=== PATIENT | male | born 1970 | race Caucasian/White ===

== ENCOUNTER 2017-11-18 18:51 | Emergency (ER) | payer OTHER ==
[2017-11-18 19:10] VITALS: BP 156/86; PULSE 63; TEMP 98.1; BMI 34.9
--- NOTE | 2017-11-18 19:12 | PDOC ---
Rapid Medical Evaluation Time Seen by Provider: 11/18/17 19:05 Medical Evaluation: Allergies Allergy/AdvReac Type Severity Reaction Status Date / Time Shellfish Allergy Intermediate pruritis Verified 12/08/14 19:57 11/18/17 19:06 I have performed a brief-in person evaluation of this patient. The patient presents with a chief complaint of: Right mid back pain x1 week with epigastric pain x3d. Cough without fever x 10d ago. Denies sour taste in mouth or acid burning to chest Pertinent physical exam findings: B/P in triage: 156/86 L/S CTAB, RRR s1,s2 Abd: neg pain on palpation I have ordered the following:cxr The patient will proceed to the ED for a further evaluation.
--- NOTE | 2017-11-18 19:22 | PDOC ---
History of Present Illness - General Chief Complaint: Nausea/Vomiting Stated Complaint: PAIN Time Seen by Provider: 11/18/17 19:05 History Source: Patient - History of Present Illness Timing/Duration: other Severity: moderate Associated Symptoms: denies: cough, fever/chills, nausea/vomiting, shortness of breath Past History - Past Medical History Allergies/Adverse Reactions: Allergies Allergy/AdvReac Type Severity Reaction Status Date / Time Shellfish Allergy Intermediate pruritis Verified 11/18/17 19:10 Home Medications: Ambulatory Orders Atenolol [Tenormin -] 50 mg PO HS 01/06/13 Levothyroxine [Synthroid -] 200 mcg PO DAILY 01/06/13 Lisinopril [Prinivil -] 30 mg PO HS 01/06/13 Anemia: No Asthma: No Cancer: No Cardiac Disorders: No CVA: No COPD: No CHF: No Dementia: No Diabetes: No GI Disorders: Yes (H PYLORI) Disorders: No HTN: Yes Hypercholesterolemia: No Liver Disease: No Seizures: No Thyroid Disease: Yes (HYPOTHYROIDISM) - Surgical History Abdominal Surgery: No Appendectomy: No Cardiac Surgery: No Cholecystectomy: No Lung Surgery: No Neurologic Surgery: No Orthopedic Surgery: No - Suicide/Smoking/Psychosocial Hx Smoking Status: No Smoking History: Never smoked Have you smoked in the past 12 months: No Number of Cigarettes Smoked Daily: 0 Information on smoking cessation initiated: No Hx Alcohol Use: No Drug/Substance Use Hx: No Substance Use Type: None Hx Substance Use Treatment: No Review of Systems - Review of Systems Constitutional: No: Chills, Fever Respiratory: No: Cough, Shortness of Breath Cardiac (ROS): No: Chest Pain, Lightheadedness, Palpitations, Syncope Musculoskeletal: Yes: Back Pain *Physical Exam - Vital Signs Last Vital Signs Temp Pulse Resp BP Pulse Ox 98.1 F 63 18 156/86 100 11/18/17 19:07 11/18/17 19:07 11/18/17 19:07 11/18/17 19:07 11/18/17 19:07 - Physical Exam General Appearance: Yes: Appropriately Dressed. No: Apparent Distress HEENT: positive: Normal Voice Neck: positive: Supple Respiratory/Chest: positive: Lungs Clear, Normal Breath Sounds. negative: Respiratory Distress Cardiovascular: positive: Regular Rate, S1, S2 Gastrointestinal/Abdominal: positive: Soft. negative: Tender Musculoskeletal: negative: CVA Tenderness Extremity: positive: Normal Inspection Integumentary: positive: Dry, Warm Neurologic: positive: Fully Oriented, Alert, Normal Mood/Affect Medical Decision Making - Medical Decision Making 11/18/17 19:21 47 yo Male, h/o anxiety, HTN, hyperthyroid, here w/ pain to right lower back 1 week. Unable to describe pain, but states it is intermittent and worse with certain movements. No associated w/ food. Not taking anything for pain for unclear reasons. Denies any trauma but states he does heavy lifting at work and also works out with weights. No cough, chest pain, shortness of breath, palpitations, nausea, vomiting, change in bowel movements, dysuria, fever or chills. Patient well-appearing and stable with unremarkable exam. Suspect muscular etiology at this time. Pt states he's concerned about gallstones, but has no abdominal pain, nausea, vomiting or other signs or symptoms consistent with biliary sorce and no known h/o GS. Chest x-ray ordered from triage and negative. Discharged with pain control and have patient follow up with PMD as needed *DC/Admit/Observation/Transfer Diagnosis at time of Disposition: Back pain Qualifiers: Back pain location: low back pain Chronicity: acute Back pain laterality: right Sciatica presence: without sciatica Qualified Code(s): M54.5 - Low back pain - Discharge Dispostion Disposition: HOME Condition at time of disposition: Good - Referrals - Patient Instructions Printed Discharge Instructions: Low Back Pain Additional Instructions: Take tylenol as needed for pain and follow-up with your doctor - Post Discharge Activity
[2017-11-18] MEDS ORDERED: IBUPROFEN 400 MG TABLET (FP) PO ONE (19:48)
== END 2017-11-18 19:58 | disposition home or self-care (01) ==
LOC: JERFT 18:51
DX: M54.5 Low back pain (principal); R10.13 Epigastric pain; I10 Essential (primary) hypertension; E03.9 Hypothyroidism, unspecified
CPT/HCPCS: 71046-TC-FY; 99281-25

== ENCOUNTER 2018-09-15 19:53 | Emergency (ER) | payer OTHER ==
--- NOTE | 2018-09-15 19:57 | PDOC ---
Rapid Medical Evaluation Time Seen by Provider: 09/15/18 19:55 Medical Evaluation: Allergies Allergy/AdvReac Type Severity Reaction Status Date / Time Shellfish Allergy Intermediate pruritis Verified 11/18/17 19:10 09/15/18 19:55 I have performed a brief in-person evaluation of this patient. The patient presents with a chief complaint of: CP w/ sob while driving several minutes ago, since resolved. H/o hypothyroid, HTN, neg stress test ~5 years ago . No obvious RF for DVT/PE Pertinent physical exam findings:stable and in NAD w/ clear chest/lungs I have ordered the following:ekg/cxr/labs The patient will proceed to the ED for further evaluation. Discharge Disposition - Diagnosis Chest pain Qualifiers: Chest pain type: unspecified Qualified Code(s): R07.9 - Chest pain, unspecified - Referrals Referrals: Rambo Mcdermott [Primary Care Provider] - - Patient Instructions - Post Discharge Activity
[2018-09-15 20:01] VITALS: TEMP 98.4; BMI 34.9
--- NOTE | 2018-09-15 20:31 | PDOC ---
History of Present Illness - General Chief Complaint: Chest Pain Stated Complaint: CHEST PAIN Time Seen by Provider: 09/15/18 19:55 - History of Present Illness Initial Comments: The patient is a 48M w/ a history of HTN, hypothyroidism, and anxiety who presents for evaluation for chest pain associated w/ shortness of breath and BLE weakness. He states that the pain started suddenly while driving, described as non-radiating, L chest pressure that resolved spontaneously after 10min. He took a Priyank at that time. He denies symptoms currently. He denies fever/chills, JOEL, vision changes, current chest pain/SOB/weakness, abdominal pain, N/V/C/D. Denies hx of HI or stroke 09/15/18 20:42 Past History - Past Medical History Allergies/Adverse Reactions: Allergies Allergy/AdvReac Type Severity Reaction Status Date / Time Shellfish Allergy Intermediate pruritis Verified 09/15/18 22:58 Home Medications: Ambulatory Orders Atenolol [Tenormin -] 50 mg PO HS 01/06/13 Levothyroxine [Synthroid -] 200 mcg PO DAILY 01/06/13 Lisinopril [Prinivil -] 30 mg PO HS 01/06/13 Anemia: No Asthma: No Cancer: No Cardiac Disorders: No CVA: No COPD: No CHF: No Dementia: No Diabetes: No GI Disorders: Yes (H PYLORI) Disorders: No HTN: Yes Hypercholesterolemia: No Liver Disease: No Seizures: No Thyroid Disease: Yes (HYPOTHYROIDISM) - Surgical History Abdominal Surgery: No Appendectomy: No Cardiac Surgery: No Cholecystectomy: No Lung Surgery: No Neurologic Surgery: No Orthopedic Surgery: No - Suicide/Smoking/Psychosocial Hx Smoking Status: No Smoking History: Never smoked Have you smoked in the past 12 months: No Number of Cigarettes Smoked Daily: 0 Hx Alcohol Use: No Drug/Substance Use Hx: No Substance Use Type: None Hx Substance Use Treatment: No Review of Systems - Review of Systems Able to Perform ROS?: Yes Comments:: GENERAL/CONSTITUTIONAL: No fever or chills. No weakness HEAD, EYES, EARS, NOSE AND THROAT: No change in vision. No ear pain or discharge. No sore throat CARDIOVASCULAR: No current chest pain or shortness of breath GASTROINTESTINAL: No nausea, vomiting, diarrhea or constipation GENITOURINARY: No dysuria, frequency, or change in urination MUSCULOSKELETAL: No joint or muscle swelling or pain. No neck or back pain SKIN: No rash NEUROLOGIC: No headache, vertigo, loss of consciousness, or change in strength/ sensation ENDOCRINE: No increased thirst. No abnormal weight change HEMATOLOGIC/LYMPHATIC: No anemia, easy bleeding, or history of blood clots ALLERGIC/IMMUNOLOGIC: No hives or skin allergy 09/15/18 20:45 Is the patient limited Vietnamese proficient: No *Physical Exam - Vital Signs Last Vital Signs Temp Pulse Resp BP Pulse Ox 98.4 F 87 18 175/97 H 98 09/15/18 19:56 09/15/18 19:56 09/15/18 19:56 09/15/18 19:56 09/15/18 19:56 - Physical Exam Comments: GENERAL: Awake, alert, and fully oriented, in no acute distress HEAD: No signs of trauma, normocephalic, atraumatic EYES: PERRLA, EOMI, sclera anicteric, conjunctiva clear ENT: Hearing grossly normal, nares patent, oropharynx clear without exudates. Moist mucosa LUNGS: No distress, speaks full sentences, clear to auscultation bilaterally HEART: Regular rate and rhythm, normal S1 and S2, no murmurs appreciated, peripheral pulses normal and equal bilaterally ABDOMEN: Soft, nontender, normoactive bowel sounds. No guarding, no rebound. No masses EXTREMITIES : Normal inspection, Normal range of motion, no edema. No clubbing or cyanosis NEUROLOGICAL: Cranial nerves II through XII grossly intact. Normal speech, normal gait, no focal sensorimotor deficits SKIN: Warm, Dry, normal turgor, no rashes or lesions noted 09/15/18 20:46 Moderate Sedation - Procedure Monitoring Vital Signs: Procedure Monitoring Vital Signs Temperature 98.4 F 09/15/18 19:56 Pulse Rate 87 09/15/18 19:56 Respiratory Rate 18 09/15/18 19:56 Blood Pressure 175/97 H 09/15/18 19:56 O2 Sat by Pulse Oximetry (%) 98 09/15/18 19:56 ED Treatment Course - LABORATORY CBC & Chemistry Diagram: 09/15/18 21:00 09/15/18 21:00 Medical Decision Making - Medical Decision Making The pt is a 48M who presents for evaluation of sudden onset L chest pressure w/ SOB and BLE weakness that spontaneously resolved after 10min Ddx: ACS, PE, PNX, PNA ED Course CMP, CBC, cardiac enzymes, coags ECG CXR ASA 325mg 09/15/18 20:47 CXR w/o evidence of PNA, PNX, or widened mediastinum 09/15/18 20:50 No leukocytosis No anemia 09/15/18 21:23 Plan for two Trop I, if neg, will plan for D/C w/ outpatient Cardiology f/u 09/15/18 21:30 D-dimer neg Initial Trop I neg Lytes wnl No ALEISHA 09/15/18 21:53 . Vital Signs Temp Pulse Resp BP Pulse Ox 98.4 F 69 18 141/90 99 09/15/18 19:56 09/16/18 00:41 09/16/18 00:41 09/16/18 00:41 09/16/18 00:41 Repeat Trop I neg Plan for D/C w/ PCP and Cardiology f/u Discharge instructions and return precautions given Plan discussed w/ patient who is in agreement and verbalized understanding Dispo: home 09/16/18 00:49 *DC/Admit/Observation/Transfer Diagnosis at time of Disposition: Chest pain Qualifiers: Chest pain type: unspecified Qualified Code(s): R07.9 - Chest pain, unspecified - Discharge Dispostion Disposition: HOME Condition at time of disposition: Stable Decision to Admit order: No - Referrals Referrals: Rambo Mcdermott [Primary Care Provider] - Manfred Funez MD [Staff Physician] - [facility] [Provider Group] - Patient Instructions Printed Discharge Instructions: DI for Chest Pain Additional Instructions: You were seen in the Emergency Department today for evaluation of chest pain. Please review the handout provided at discharge. Continue to take your medications as prescribed. Follow up with your primary care provider and Cardiology referral. Return to the Emergency Department if you develop fevers/chills, chest pain, shortness of breath, nausea/vomiting, or any new/concerning symptoms - Post Discharge Activity Forms/Work/School Notes: Back to Work
[2018-09-15] MEDS ORDERED: ASPIRIN 325 MG TABLET PO ONE (20:47)
--- NOTE | 2018-09-15 20:55 | PDOC ---
Attending Attestation - HPI HPI: 09/15/18 22:05 The patient is a 48 year old male with a significant PMH of hypertension, hypothyroidism, and H.Pylori who presents to the emergency department with left sided chest pain since earlier today. The patient reports some associated shortness of breath with his chest pain. He denies any radiation. The patient also reports some bilateral leg pain also . he denies any other symptoms or complaints. The patient denies any fever, chills, nausea, vomiting, diarrhea, constipation or urinary symptoms. He denies any headache or dizziness. - Physicial Exam PE: 09/15/18 22:05 GENERAL: Awake, alert, and fully oriented, in no acute distress HEAD: No signs of trauma EYES: PERRLA, EOMI, sclera anicteric, conjunctiva clear ENT: Auricles normal inspection, hearing grossly normal, nares patent, oropharynx clear without exudates. Moist mucosa NECK: Normal ROM, supple, no lymphadenopathy, JVD, or masses LUNGS: Breath sounds equal, clear to auscultation bilaterally. No wheezes, and no crackles HEART: Regular rate and rhythm, normal S1 and S2, no murmurs, rubs or gallops ABDOMEN: Soft, nontender, normoactive bowel sounds. No guarding, no rebound. No masses EXTREMITIES: Normal range of motion, no edema. No clubbing or cyanosis. No cords, erythema, or tenderness NEUROLOGICAL: Cranial nerves II through XII grossly intact. Normal speech, normal gait SKIN: Warm, Dry, normal turgor, no rashes or lesions noted. Documentation prepared by Amanda Pinedo, acting as medical territory manager for Nichol Wood MD. <Amanda Pinedo - Last Filed: 09/15/18 22:05> - Resident Resident Name: Vishal Eastman - ED Attending Attestation I have performed the following: I have examined & evaluated the patient, The case was reviewed & discussed with the resident, I agree w/resident's findings & plan, Exceptions are as noted - Medical Decision Making 09/15/18 20:55 I, Dr. Nichol Wood, DO, attest that this document has been prepared under my direction and personally reviewed by me in its entirety. I further attest, that it accurately reflects all work, treatment, procedures and medical decision -making performed by me. 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 -will send labs, ekg, cxr 09/16/18 00:39 trop x 2 are negative cxr clear pt feeling better stable for d/c to home <Nichol Wood - Last Filed: 09/16/18 00:39> Heart Score/ECG Review - History History: Moderately suspicious - Electrocardiogram EKG: Normal - Age Age: 45-65 - Risk Factors Risk Factors Heart Score: Yes Hx Hypertension Based on the list above the patient has:: 1-2 risk factors - Troponin Troponin: </= normal limit - Score Heart Score - Total: 3 - ECG Intrepretation Comment:: 09/15/18 21:16 sinus at 82, nl axis, nl interval, no acute st/t wave findings, lvh, t wave inversions III which are nonspecific <Nichol Wood - Last Filed: 09/16/18 00:39>
[2018-09-15 21:10] LABS: BASO % 0.2 % (0-2.0); EOS % 5.6 % (0-4.5); HEMATOCRIT 40.5 % (35.4-49); HEMOGLOBIN 14.2 GM/dL (11.7-16.9); LYMPH % 31.4 % (8-40); MCH 29.9 pg (25.7-33.7); MCHC 35.1 g/dl (32.0-35.9); MEAN CELL VOLUME 85.3 fl (80-96); MEAN PLT VOLUME 8.1 fl (7.5-11.1); MONO % 7.5 % (3.8-10.2); NEUT % 55.3 % (42.8-82.8); PLATELET COUNT 180 K/MM3 (134-434); RBC 4.75 M/mm3 (4.00-5.60); RDW 13.3 % (11.9-15.9); WHITE BLOOD COUNT 4.9 K/mm3 (4.0-10.0)
[2018-09-15] MEDS ORDERED: ASPIRIN 81 MG CHEWABLE TABLETS ONE (21:26)
[2018-09-15 21:53] LABS: ALBUMIN 3.8 g/dl (3.4-5.0); ALK PHOS 68 U/L (45-117); ANION GAP 8 MMOL/L (8-16); BILIRUBIN,TOTAL 0.3 mg/dL (0.2-1); BLOOD UREA NITROGEN 18 mg/dL (7-18); CALCIUM 8.4 mg/dL (8.5-10.1); CHLORIDE 103 mmol/L (98-107); CO2 29 mmol/L (21-32); CREATININE 1.1 mg/dL (0.55-1.3); GLUCOSE,RANDOM 162 mg/dL (74-106); POTASSIUM 3.5 mmol/L (3.5-5.1); SGOT/AST 34 U/L (15-37); SGPT/ALT 50 U/L (13-61); SODIUM 140 mmol/L (136-145); TOT PROT 7.2 g/dl (6.4-8.2)
[2018-09-16] MEDS ORDERED: ACETAMINOPHEN 325 MG TABLET (FP) ONE (00:12)
[2018-09-16 00:42] VITALS: BP 141/90; PULSE 69
--- NOTE | 2018-09-16 17:15 | EKG ---
Test Reason : Blood Pressure : / mmHG Vent. Rate : 082 BPM Atrial Rate : 082 BPM P-R Int : 166 ms QRS Dur : 104 ms QT Int : 368 ms P-R-T Axes : 053 021 012 degrees QTc Int : 429 ms NORMAL SINUS RHYTHM NORMAL ECG WHEN COMPARED WITH ECG OF 08-DEC-2014 20:37, NO SIGNIFICANT CHANGE WAS FOUND Confirmed by MD YARELY, ED ([id number]) on 09/16/2018 5:15:04 PM Referred By: Confirmed By:ED PRITCHETT MD
== END 2018-09-16 01:00 | disposition home or self-care (01) ==
LOC: JER 19:53
DX: R07.9 Chest pain, unspecified (principal); I10 Essential (primary) hypertension; E03.9 Hypothyroidism, unspecified; Z86.19 Personal history of other infectious and parasitic diseases
CPT/HCPCS: 36415; 71045-TC-FY; 80053; 82550; 82553; 84484; 85025; 85379; 93005; 93010; 99283-25

== ENCOUNTER 2019-01-06 02:20 | Emergency (ER) | payer OTHER ==
[2019-01-06 03:16] VITALS: BP 142/98; PULSE 104; TEMP 98.3; BMI 31.7
[2019-01-06] MEDS ORDERED: MAG HYDROX/AL HYDROX/SIMETH 30 ML UNIT-DOSE CUP PO ONE (03:32)
[2019-01-06] MEDS ORDERED: MAG HYDROX/AL HYDROX/SIMETH 30 ML UNIT-DOSE CUP ONE (03:36)
--- NOTE | 2019-01-06 04:55 | PDOC ---
Attending Attestation - Resident Resident Name: Vishal Eastman - HPI HPI: 01/06/19 04:54 Pt was seen by resident but left prior to my evaluation. I did NOT examine or evaluate patient prior to his leaving the department. - Physicial Exam PE: 01/06/19 04:54 n/a - Medical Decision Making 01/06/19 04:54 Left before medical evaluation
--- NOTE | 2019-01-06 04:59 | PDOC ---
History of Present Illness - General Chief Complaint: Shortness of Breath Stated Complaint: SOB Time Seen by Provider: 01/06/19 03:48 - History of Present Illness Initial Comments: The pt is a 48M w/ history of HTN, anxiety, and H. pylori who presents for evaluation of 3 hours of burning epigastric pain that radiated into his chest which has since resolved. Pt reports pain feels similar to that of his previous reflux symptoms. Reports eating chips and having an EtOH beverage before bed ( 2200). In the ED, the pt reports being asymptomatic but wanted to be evaluation because he was concerned about his symptoms. The pt denies any exacerbating or alleviating symptoms. Denies fevers/chills, JOEL, vision changes, dizziness/lightheadedness, abdominal pain, N/V/C/D, dysuria, hematuria, or changes in sensation 01/06/19 04:54 Past History - Past Medical History Allergies/Adverse Reactions: Allergies Allergy/AdvReac Type Severity Reaction Status Date / Time Shellfish Allergy Intermediate pruritis Verified 01/06/19 03:15 Home Medications: Ambulatory Orders Atenolol [Tenormin -] 50 mg PO HS 01/06/13 Levothyroxine [Synthroid -] 200 mcg PO DAILY 01/06/13 Lisinopril [Prinivil -] 30 mg PO HS 01/06/13 Anemia: No Asthma: No Cancer: No Cardiac Disorders: No CVA: No COPD: No CHF: No Dementia: No Diabetes: No GI Disorders: Yes (H PYLORI) Disorders: No HTN: Yes Hypercholesterolemia: No Liver Disease: No Seizures: No Thyroid Disease: Yes (HYPOTHYROIDISM) - Surgical History Abdominal Surgery: No Appendectomy: No Cardiac Surgery: No Cholecystectomy: No Lung Surgery: No Neurologic Surgery: No Orthopedic Surgery: No - Immunization History Immunization Up to Date: Yes - Suicide/Smoking/Psychosocial Hx Smoking Status: No Smoking History: Never smoked Have you smoked in the past 12 months: No Number of Cigarettes Smoked Daily: 0 Information on smoking cessation initiated: No Hx Alcohol Use: No Drug/Substance Use Hx: No Substance Use Type: None Hx Substance Use Treatment: No Review of Systems - Review of Systems Able to Perform ROS?: Yes Comments:: GENERAL/CONSTITUTIONAL: No fever or chills. No weakness HEAD, EYES, EARS, NOSE AND THROAT: No change in vision. No ear pain or discharge. No sore throat CARDIOVASCULAR: No shortness of breath RESPIRATORY: Denies cough, hemoptysis GASTROINTESTINAL: No nausea, vomiting, diarrhea or constipation GENITOURINARY: No dysuria, frequency, or change in urination MUSCULOSKELETAL: No joint or muscle swelling or pain. No neck or back pain SKIN: No rash NEUROLOGIC: No headache, vertigo, loss of consciousness, or change in strength/ sensation HEMATOLOGIC/LYMPHATIC: No anemia, easy bleeding, or history of blood clots 01/06/19 04:59 Is the patient limited Hong Konger proficient: No *Physical Exam - Vital Signs Last Vital Signs Temp Pulse Resp BP Pulse Ox 98.3 F 104 H 20 142/98 98 01/06/19 03:15 01/06/19 03:15 01/06/19 03:15 01/06/19 03:15 01/06/19 03:15 - Physical Exam Comments: GENERAL: Awake, alert, and oriented to person/place/time, in no acute distress HEAD: No signs of trauma, normocephalic, atraumatic EYES: PERRLA, EOMI, sclera anicteric, conjunctiva clear ENT: Hearing grossly normal, nares patent, oropharynx clear without exudates. Moist mucosa LUNGS: No distress, speaks full sentences, clear to auscultation bilaterally HEART: Regular rate and rhythm, normal S1 and S2, no murmurs appreciated, peripheral pulses normal and equal bilaterally ABDOMEN: Soft, nontender, normoactive bowel sounds. No guarding, no rebound EXTREMITIES: Normal inspection, Normal range of motion, no edema. No clubbing or cyanosis NEUROLOGICAL: Cranial nerves II through XII grossly intact. Normal speech, no focal sensorimotor deficits SKIN: Warm, Dry 01/06/19 05:00 Moderate Sedation - Procedure Monitoring Vital Signs: Procedure Monitoring Vital Signs Temperature 98.3 F 01/06/19 03:15 Pulse Rate 104 H 01/06/19 03:15 Respiratory Rate 20 01/06/19 03:15 Blood Pressure 142/98 01/06/19 03:15 O2 Sat by Pulse Oximetry (%) 98 01/06/19 03:15 ED Treatment Course - Medications Given in the ED: ED Medications Discontinued Medications Generic Name Dose Route Start Last Admin Trade Name Freq PRN Reason Stop Dose Admin Al Hydroxide/Mg Hydroxide 30 ml 01/06/19 03:32 01/06/19 03:38 Mylanta Oral Suspension - PO 01/06/19 03:33 30 ml ONCE ONE Administration Medical Decision Making - Medical Decision Making Pt is a 48M w/ a history of HTN, anxiety, and H. pylori presents for evaluation of several hours of epigastric burning pain likely 2/2 reflux Maalox for symptomatic relief Pt eloped before Attending evaluation or further workup could be completed No IV in place 01/06/19 05:01 *DC/Admit/Observation/Transfer Diagnosis at time of Disposition: Epigastric abdominal pain - Discharge Dispostion Disposition: ELOPED Condition at time of disposition: Stable Decision to Admit order: No - Referrals Referrals: Hallie Whitley MD [Primary Care Provider] - - Patient Instructions - Post Discharge Activity
== END 2019-01-06 04:54 | disposition left against medical advice (07) ==
LOC: JER 02:20
DX: R10.13 Epigastric pain (principal); I10 Essential (primary) hypertension; E03.9 Hypothyroidism, unspecified; R07.9 Chest pain, unspecified; Z87.19 Personal history of other diseases of the digestive system
CPT/HCPCS: 99281-25

== ENCOUNTER 2019-02-14 20:15 | Emergency (ER) | payer OTHER ==
[2019-02-14 20:21] VITALS: BP 138/88; PULSE 93; TEMP 101; BMI 34.9
[2019-02-14] MEDS ORDERED: ACETAMINOPHEN 500 MG TABLET (FP) PO ONE (20:54)
[2019-02-14] MEDS ORDERED: ACETAMINOPHEN 500 MG TABLET (FP) ONE (21:01)
--- NOTE | 2019-02-14 21:03 | PDOC ---
History of Present Illness - General Chief Complaint: Cold Symptoms Stated Complaint: FEVER,SEVERE HEADACHE Time Seen by Provider: 02/14/19 20:54 - History of Present Illness Initial Comments: 02/14/19 21:02 With a past medical history significant for hypertension presents for evaluation of diarrhea. He's had diarrhea for the last 3 days, 3 days ago he had 3 episodes, followed by one episode the following day and another episode the day after. He has nighttime fevers and gas. Past History - Past Medical History Allergies/Adverse Reactions: Allergies Allergy/AdvReac Type Severity Reaction Status Date / Time Shellfish Allergy Intermediate pruritis Verified 02/14/19 20:21 Home Medications: Ambulatory Orders Atenolol [Tenormin -] 50 mg PO HS 01/06/13 Levothyroxine [Synthroid -] 200 mcg PO DAILY 01/06/13 Lisinopril [Prinivil -] 30 mg PO HS 01/06/13 Anemia: No Asthma: No Cancer: No Cardiac Disorders: No CVA: No COPD: No CHF: No Dementia: No Diabetes: No GI Disorders: Yes (H PYLORI) Disorders: No HTN: Yes Hypercholesterolemia: No Liver Disease: No Seizures: No Thyroid Disease: Yes (HYPOTHYROIDISM) - Surgical History Abdominal Surgery: No Appendectomy: No Cardiac Surgery: No Cholecystectomy: No Lung Surgery: No Neurologic Surgery: No Orthopedic Surgery: No - Immunization History Immunization Up to Date: Yes - Suicide/Smoking/Psychosocial Hx Smoking Status: No Smoking History: Never smoked Have you smoked in the past 12 months: No Number of Cigarettes Smoked Daily: 0 Information on smoking cessation initiated: No Hx Alcohol Use: No Drug/Substance Use Hx: No Substance Use Type: None Hx Substance Use Treatment: No Review of Systems - Review of Systems Constitutional: Yes: Fever ABD/GI: Yes: Diarrhea, Nausea. No: Vomiting *Physical Exam - Vital Signs Last Vital Signs Temp Pulse Resp BP Pulse Ox 101 F H 93 H 16 138/88 100 02/14/19 20:19 02/14/19 20:19 02/14/19 20:19 02/14/19 20:19 02/14/19 20:19 - Physical Exam Comments: 02/14/19 21:02 HEAD: NC/AT EYES: Conjuntiva clear Ears: Canals and TM's normal NOSE: No d/c THROAT: Moist mucous membrances, oral pharanx clear, uvula midline NECK: Supple without adenopathy CARDIAC: S1 S2 LUNGS: CTA Full and Equal breath sounds ABDOMEN: Soft NT ND MS: Full ROM in all joints without edema NEUROLOGIC: No gross sensory or motor deficits, NVID SKIN: Normal color and temperature no lesions or rashes Medical Decision Making - Medical Decision Making 02/14/19 21:02 Supportive care for gastroenteritis, Tylenol and Motrin discussed for fever. Gastroenterology follow-up. *DC/Admit/Observation/Transfer Diagnosis at time of Disposition: Viral gastroenteritis - Discharge Dispostion Disposition: HOME Condition at time of disposition: Stable Decision to Admit order: No - Referrals Referrals: Hallie Whitley MD [Primary Care Provider] - Miguel Angel Smart DO [Staff Physician] - - Patient Instructions Printed Discharge Instructions: DI for Viral Gastroenteritis -- Adult, Gastroenteritis Diet Additional Instructions: Tylenol and Motrin as directed for fevers. Follow-up with gastroenterology in one to 2 days for further evaluation and treatment options. Return to the emergency room should symptoms worsen or go unresolved. Please follow gastroenteritis diet that was given to you today in the emergency room. - Post Discharge Activity Forms/Work/School Notes: Back to Work
== END 2019-02-14 21:04 | disposition home or self-care (01) ==
LOC: JERFT 20:15
DX: K52.9 Noninfective gastroenteritis and colitis, unspecified (principal); E03.9 Hypothyroidism, unspecified; I10 Essential (primary) hypertension
CPT/HCPCS: 87804; 99281-25

== ENCOUNTER 2019-08-08 22:55 | Observation (INO) | payer OTHER ==
[2019-08-08 23:22] VITALS: BMI 33.4
--- NOTE | 2019-08-08 23:41 | PDOC ---
History of Present Illness - General Chief Complaint: Shortness of Breath Stated Complaint: SHORTNESS OF BREATH Time Seen by Provider: 08/08/19 23:31 History Source: Patient Exam Limitations: No Limitations - History of Present Illness Initial Comments: 08/09/19 01:59 49 yo M with a hx of HTN, anxiety, H pylori, and hypothyroidism with last stress test in 2012 (within normal limits) presents to the emergency department with chest pain that began at approximately 10:30 pm. Per the patient, he states it awoke him from sleep, lasted for 25 minutes, center chest with radiation to the neck anterior, and described as a pressure like sensation. Denies concurrent SOB. The patient is active in the gym, per the patient, and denies MAHER or chest pain with exertion. Denies familial cardiac hx. Denies tobacco. Denies back pain. Allergies: NKDA Past History - Past Medical History Allergies/Adverse Reactions: Allergies Allergy/AdvReac Type Severity Reaction Status Date / Time Shellfish Allergy Intermediate pruritis Verified 08/08/19 23:22 Home Medications: Ambulatory Orders Levothyroxine [Synthroid -] 175 mcg PO DAILY 01/06/13 Lisinopril [Prinivil -] 40 mg PO HS 01/06/13 Amlodipine Besylate 5 mg PO DAILY 08/09/19 Carvedilol [Coreg] 6.25 mg PO BID 08/09/19 Anemia: No Asthma: No Cancer: No Cardiac Disorders: No CVA: No COPD: No CHF: No Dementia: No Diabetes: No GI Disorders: Yes (H PYLORI) Disorders: No HTN: Yes Hypercholesterolemia: No Liver Disease: No Seizures: No Thyroid Disease: Yes (HYPOTHYROIDISM) - Surgical History Abdominal Surgery: No Appendectomy: No Cardiac Surgery: No Cholecystectomy: No Lung Surgery: No Neurologic Surgery: No Orthopedic Surgery: No - Immunization History Immunization Up to Date: Yes - Psycho Social/Smoking Cessation Hx Smoking Status: No Smoking History: Never smoked Have you smoked in the past 12 months: No Number of Cigarettes Smoked Daily: 0 Hx Alcohol Use: Yes (social) Drug/Substance Use Hx: No Substance Use Type: None Hx Substance Use Treatment: No Review of Systems - Review of Systems Able to Perform ROS?: Yes Is the patient limited Romanian proficient: No Constitutional: No: Chills, Diaphoresis, Fever, Weakness HEENTM: No: Eye Pain, Ear Pain, Nose Pain, Throat Pain, Mouth Pain Respiratory: No: Cough, Shortness of Breath, Hemoptysis Cardiac (ROS): Yes: Chest Pain. No: Lightheadedness, Palpitations, Syncope ABD/GI: No: Constipated, Diarrhea, Nausea, Poor Fluid Intake, Rectal Bleeding, Vomiting, Tarry Stools : No: Burning, Dysuria, Incontinence, Pain Musculoskeletal: No: Back Pain, Joint Pain, Neck Pain Integumentary: No: Bruising, Lesions, Rash Neurological: No: Headache, Numbness, Tremors Psychiatric: No: Change in Appetite Endocrine: No: Increased Hunger Hematologic/Lymphatic: No: Anemia *Physical Exam - Vital Signs Last Vital Signs Temp Pulse Resp BP Pulse Ox 98.5 F 103 H 22 H 204/68 H 100 08/08/19 23:00 08/08/19 23:00 08/08/19 23:00 08/08/19 23:00 08/08/19 23:00 - Physical Exam General Appearance: Yes: Nourished, Appropriately Dressed, Obese, Other (flat affect). No: Apparent Distress, Intoxicated HEENT: positive: EOMI, BRIAN, Normal Voice, Symmetrical, Pharynx Normal, Hearing Grossly Normal. negative: Pale Conjunctivae, Scleral Icterus (R), Scleral Icterus (L), Muffled/Hoarse voice, Pharyngeal Erythema, Tonsillar Exudate, Tonsillar Erythema, Excessive drooling Neck: positive: Trachea midline, Supple. negative: Tender, Lymphadenopathy (R) , Lymphadenopathy (L), Tender lateral, Tender midline Respiratory/Chest: positive: Lungs Clear, Normal Breath Sounds. negative: Chest Tender, Respiratory Distress, Accessory Muscle Use, Crackles, Rales, Rhonchi, Stridor Cardiovascular: positive: Regular Rhythm, Regular Rate, S1, S2. negative: Systolic Murmur Gastrointestinal/Abdominal: positive: Normal Bowel Sounds, Flat, Soft. negative : Tender Lymphatic: negative: Adenopathy Musculoskeletal: positive: Normal Inspection. negative: CVA Tenderness, Vertebral Tenderness Extremity: positive: Normal Capillary Refill, Normal Inspection, Normal Range of Motion. negative: Tender Integumentary: positive: Normal Color, Dry, Warm Neurologic: positive: nutrition therapist II-XII NML intact, Fully Oriented, Alert ED Treatment Course - LABORATORY CBC & Chemistry Diagram: 08/10/19 05:50 08/10/19 05:50 Medical Decision Making - Medical Decision Making 49 yo M with a hx of HTN, anxiety, H pylori, and hypothyroidism with last stress test in 2012 (within normal limits) presents to the emergency department with chest pain that began at approximately 10:30 pm. Initial vitals: Initial Vital Signs Temp Pulse Resp BP Pulse Ox 98.5 F 103 H 22 H 204/68 H 100 08/08/19 23:00 08/08/19 23:00 08/08/19 23:00 08/08/19 23:00 08/08/19 23:00 149/83 BP on initial assessment. Work up ACS work up Laboratory Tests 08/09/19 08/09/19 08/09/19 00:40 00:40 00:40 WBC 5.0 RBC 4.59 Hgb 13.1 Hct 39.0 MCV 85.0 MCH 28.5 MCHC 33.5 RDW 13.3 Plt Count 188 MPV 8.4 Absolute Neuts (auto) 2.7 Neutrophils % 54.3 Lymphocytes % 30.1 Monocytes % 8.8 Eosinophils % 6.5 H Basophils % 0.3 Nucleated RBC % 0 PT with INR INR Sodium 140 Potassium 3.6 Chloride 104 Carbon Dioxide 28 Anion Gap 8 BUN 25.6 H Creatinine 1.5 H Est GFR (CKD-EPI)AfAm 63.34 Est GFR (CKD-EPI)NonAf 54.65 Random Glucose 111 H Calcium 8.3 L Total Bilirubin 0.3 AST 23 ALT 24 Alkaline Phosphatase 73 Creatine Kinase 207 Creatine Kinase Index No Result Required. CK-MB (CK-2) < 1.0 Troponin I 0.10 H Total Protein 7.0 Albumin 3.7 TSH 4.82 H 08/09/19 00:40 WBC RBC Hgb Hct MCV MCH MCHC RDW Plt Count MPV Absolute Neuts (auto) Neutrophils % Lymphocytes % Monocytes % Eosinophils % Basophils % Nucleated RBC % PT with INR 12.50 INR 1.06 Sodium Potassium Chloride Carbon Dioxide Anion Gap BUN Creatinine Est GFR (CKD-EPI)AfAm Est GFR (CKD-EPI)NonAf Random Glucose Calcium Total Bilirubin AST ALT Alkaline Phosphatase Creatine Kinase Creatine Kinase Index CK-MB (CK-2) Troponin I Total Protein Albumin TSH EKG shows NSR without ST elevations or depressions. QRS is 106 ms. WV is 180ms. CXR shows no acute pathologies. Labs show ALEISHA and elevated troponin of 0.10. Patient to have repeat troponin. PMD is Hallie Dunlap. Repeat troponin 0.13. patient has stable vitals. Likely demand ischemia secondary to severe CAD vs NSTEMI. Patient to be admitted for further cardiac work up. Dispo: Admit Discharge - Discharge Information Problems reviewed: Yes Clinical Impression/Diagnosis: Chest pain Qualifiers: Chest pain type: unspecified Qualified Code(s): R07.9 - Chest pain, unspecified Condition: Guarded - Follow up/Referral - Patient Discharge Instructions - Post Discharge Activity
[2019-08-09 01:05] LABS: BASO % 0.3 % (0-2.0); EOS % 6.5 % (0-4.5); HEMOGLOBIN 13.1 GM/dL (11.7-16.9); LYMPH % 30.1 % (8-40); MCH 28.5 pg (25.7-33.7); MCHC 33.5 g/dl (32.0-35.9); MEAN PLT VOLUME 8.4 fl (7.5-11.1); MONO % 8.8 % (3.8-10.2); NEUT % 54.3 % (42.8-82.8); PLATELET COUNT 188 K/MM3 (134-434); RBC 4.59 M/mm3 (4.00-5.60); RDW 13.3 % (11.9-15.9)
[2019-08-09 01:18] LABS: INR 1.06 (0.83-1.09); PROTHROMBIN TIME (PATIENT) 12.5 SEC (9.7-13.0)
[2019-08-09 01:29] LABS: ALBUMIN 3.7 g/dl (3.4-5.0); BILIRUBIN,TOTAL 0.3 mg/dL (0.2-1); BLOOD UREA NITROGEN 25.6 mg/dL (7-18); CALCIUM 8.3 mg/dL (8.5-10.1); CREATININE 1.5 mg/dL (0.55-1.3); POTASSIUM 3.6 mmol/L (3.5-5.1)
[2019-08-09] MEDS ORDERED: SODIUM CHLORIDE 1,000 ML IV STA (01:52)
[2019-08-09] MEDS ORDERED: ASPIRIN 81 MG CHEWABLE TABLETS PO ONE (01:52)
--- NOTE | 2019-08-09 02:25 | PN ---
Teaching Attending Note Name of Resident: Nicole Davila ATTENDING PHYSICIAN STATEMENT I saw and evaluated the patient. I reviewed the resident's note and discussed the case with the resident. I agree with the resident's findings and plan as documented. SUBJECTIVE: Patient is a 49 year old man with a PMH of HTN, Anxiety, H pylori infection, Obstructive sleep apnea and Hypothyroidism presents to the ER with chest pain that began at approximately 10:30 pm. Per the patient, it awoke him from sleep, lasted for 25 minutes, and center chest with radiation to the neck anterior, and described as a pressure like sensation. Denies concurrent SOB. The patient is active in the gym, per the patient, and denies MAHER or chest pain with exertion. Denies familial cardiac history. Has FH of DM, HTN and HLD. Denies tobacco, alcohol or illicit drug abuse. OBJECTIVE: Alert Vital Signs Period Temp Pulse Resp BP Sys/Arreola Pulse Ox Last 24 Hr 98.5 F 72-103 18-22 149-204/68-85 99-100 HEENT: No Jaundice, eye redness or discharge, PERRLA, EOMI. Normocephalic, atraumatic. External ears are normal and hearing is grossly intact. No nasal discharge. Neck: Supple, nontender. No palpable adenopathy or thyromegaly. No JVD Chest: Good effort. Clear to auscultation and percussion. Heart: Regular. No S3, rub or murmur Abdomen: Not distended, soft, nontender and no HSM. No rebound or guarding. Normal bowel sounds. Ext: Peripheral pulses intact. Leg edema. Skin: Warm and dry. No petechiae, rash or ecchymosis. Neuro: Alert. Oriented x3. CN 2-12 grossly intact. Sensation grossly intact in all four extremities and DTR are symmetric. Psych: Appropriate mood and affect. Good insight. Home Medications Medication Instructions Recorded Levothyroxine [Synthroid -] 125 mcg PO DAILY 01/06/13 Lisinopril [Prinivil -] 40 mg PO HS 01/06/13 Amlodipine Besylate 5 mg PO DAILY 08/09/19 Carvedilol [Coreg] 6.25 mg PO DAILY 08/09/19 Abnormal Lab Results 08/09/19 08/09/19 08/09/19 00:40 00:40 00:40 Eosinophils % 6.5 H BUN 25.6 H Creatinine 1.5 H Random Glucose 111 H Calcium 8.3 L Troponin I 0.10 H TSH 4.82 H ASSESSMENT AND PLAN: 1. Chest pain - Now painfree. EKG shows NSR with no changes of ischemia, but troponin is elevated. Will admit to telemetry to rule out ACS, get ECHO, fasting lipids and consult cardiology. Urine toxicology is negative. CXR shows cardiomegaly. Elevated TSH is a concern. Will get free T4/T3RU and confirm adherence with current does of synthroid. Eosinophilia is unexplained - will monitor. Will continue comprehensive care for all of patients comorbid conditions. 2. ALEISHA - Cause unclear. Will get urinalysis, kidney sonogram, hydrate gently and monitor urine output. Will avoid nephrotoxic agents. 3. Obesity Counseled on the risks associated with obesity. Will provide patient all the necessary assistance, counseling and positive reinforcement to facilitate weight loss. Consult sleeve maker. 4. Uncontrolled Hypertension - Restart suitable outpatient antihypertensive drugs when clinically appropriate. Will advise him to take Amlodipine at night in view of leg edema. If ECHO is normal, will DC amlodipine and also add HCTZ 12.5 mg po q am. 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 Nonpharmacologic measures to control hypertension like weight loss, salt restriction and exercise discussed. Importance of adherence to treatment regimen and attainment of normotension emphasized. 5. DVT prophylaxis - Heparin 5000u sq tid. 6. Advance directives - Full code
[2019-08-09] MEDS ORDERED: ASPIRIN 81 MG CHEWABLE TABLETS ONE (02:26)
[2019-08-09 03:21] LABS: COCAINE, UR NEGATIVE ng/ml (CUTOFF=300); METHADONE, UR NEGATIVE ng/ml (CUTOFF=300); OPIATES, URI NEGATIVE ng/ml (CUTOFF=300); PHENCYCLIDINE,URINE NEGATIVE ng/ml (CUTOFF=25); URINE AMPHETAMINES NEGATIVE ng/ml (CUTOFF=500); URINE BARBITURATES NEGATIVE ng/ml (CUTOFF=200); URINE BENZODIAZEPINES NEGATIVE ng/ml (CUTOFF=200)
--- NOTE | 2019-08-09 03:44 | PDOC ---
Attending Attestation - Resident Resident Name: Jose Birch - ED Attending Attestation I have performed the following: I have examined & evaluated the patient, The case was reviewed & discussed with the resident, I agree w/resident's findings & plan - HPI HPI: 08/09/19 03:43 see resident hpi - Physicial Exam PE: 08/09/19 03:43 agree with resident exam - Medical Decision Making 08/09/19 03:43 08/09/19 03:42 49-year-old male with an episode of chest pain and shortness of breath Last cardiac stress test was in 2012 which was within normal limits Patient chest pain-free at this time First troponin is mildly elevated Aspirin given in the emergency department, patient to be admitted to medical service for further evaluation 08/09/19 03:43
[2019-08-09] MEDS ORDERED: SODIUM CHLORIDE 1,000 ML IV SCH (04:15)
--- NOTE | 2019-08-09 05:04 | HP ---
CHIEF COMPLAINT: chest pain, SOB, heart palpitations PCP: Dr. jacobsen Sleep Medicine: Dr. Tipton HISTORY OF PRESENT ILLNESS: Mr. Phelps is a 49 year old man with a pmhx HTN, anxiety, hypothyroidism, and DEYANIRA who presents to the ED with SOB, heart palpiations and chestpains which began around 10:30pm this evening. The patient reports that he was falling asleep in bed when all of a sudden he felt short of breath, he sat up and he felt his "heart was beating funny" he also had chest pain which he described as a "pressure that radiated to his neck". The patient states he has had multiple similar incidents in the past, but this episode differed in that he also was experiencing the pressure-like chest pain which he hasn't had before. The patient stats that he has a history of anxiety and panic attacks, which have presented in the past as SOB and heart palpations upon falling asleep. The patient states he had been seeing a psychologist a few months ago but hasn't been recently. He reports that his current episode of chest pain had improved when he got to the hospital and he denied having chest pain currently. The episode lasted approximately 30min. He denied fevers, nausea , vomiting, weakness, changes in vision/ hearing, numbness/ tingling in hands or feet, or diarrhea/ constipation. He endorsed chills, SOB, chest pain and heart palpiations. ER course was notable for: (1) Normal EKG in sinus rhythm, QTc 427 (2) elevated troponin to 0.1 (3) BP initially measured as 204/68 however ED resident reports that this was an erroneous measurement taken with incorrectly sized cuff over the patient's jacket. ED rechecked BP with correct sized cuff without jacket and it was 149/ 83. Recent Travel: denies PAST MEDICAL HISTORY: HTN, anxiety, hypothyroidism, and DEYANIRA PAST SURGICAL HISTORY: denies Social History: Smoking: denies Alcohol: socially on weekends or for events Drugs: denies Allergies Shellfish Allergy (Intermediate, Verified 08/08/19 23:22) pruritis throat itches HOME MEDICATIONS: Home Medications Medication Instructions Recorded Levothyroxine [Synthroid -] 125 mcg PO DAILY 01/06/13 Lisinopril [Prinivil -] 40 mg PO HS 01/06/13 Amlodipine Besylate 5 mg PO DAILY 08/09/19 Carvedilol [Coreg] 6.25 mg PO DAILY 08/09/19 REVIEW OF SYSTEMS CONSTITUTIONAL: chills, Absent: fever, diaphoresis, generalized weakness, malaise, loss of appetite, weight change HEENT: Absent: rhinorrhea, nasal congestion, throat pain, throat swelling, difficulty swallowing, mouth swelling, ear pain, eye pain, visual changes CARDIOVASCULAR: chest pain, palpitations, peripheral edema Absent: syncope, , irregular heart rate, lightheadedness, RESPIRATORY: shortness of breath Absent: cough, dyspnea with exertion, orthopnea, wheezing, stridor, hemoptysis GASTROINTESTINAL: Absent: abdominal pain, abdominal distension, nausea, vomiting, diarrhea, constipation, melena, hematochezia GENITOURINARY: Absent: dysuria, frequency, urgency, hesitancy, hematuria, flank pain, genital pain MUSCULOSKELETAL: Absent: myalgia, arthralgia, joint swelling, back pain, neck pain SKIN: Absent: rash, itching, pallor HEMATOLOGIC/IMMUNOLOGIC: Absent: easy bleeding, easy bruising, lymphadenopathy, frequent infections ENDOCRINE: Absent: unexplained weight gain, unexplained weight loss, heat intolerance, cold intolerance NEUROLOGIC: Absent: headache, focal weakness or paresthesias, dizziness, unsteady gait, seizure, mental status changes, bladder or bowel incontinence PSYCHIATRIC: Absent: anxiety, depression, suicidal or homicidal ideation, hallucinations. PHYSICAL EXAMINATION Vital Signs - 24 hr 08/08/19 08/09/19 08/09/19 23:00 00:20 02:55 Temperature 98.5 F Pulse Rate 103 H 72 Pulse Rate [ 74 Right Radial] Respiratory 22 H 18 Rate Blood Pressure 204/68 H Blood Pressure 149/85 [Left Arm] O2 Sat by Pulse 100 99 100 Oximetry (%) GENERAL: Awake, alert, and fully oriented, in no acute distress, breathing comfortably on room air HEAD: Normal with no signs of trauma. EYES: Pupils equal, round and reactive to light, extraocular movements intact, sclera anicteric, conjunctiva clear. No lid lag. EARS, NOSE, THROAT: Ears normal, nares patent, oropharynx clear without exudates. Moist mucous membranes. NECK: Normal range of motion, supple without lymphadenopathy, JVD, or masses. LUNGS: Breath sounds equal, clear to auscultation bilaterally. No wheezes, and no crackles. No accessory muscle use. HEART: Regular rate and rhythm, normal S1 and S2 without murmur, rub or gallop. ABDOMEN: Soft, nontender, not distended, normoactive bowel sounds, no guarding, no rebound, no masses. No hepatomegaly or splenomegaly. MUSCULOSKELETAL: Normal range of motion at all joints. No bony deformities or tenderness. No CVA tenderness. UPPER EXTREMITIES: 2+ pulses, warm, well-perfused. No cyanosis. No clubbing. No peripheral edema. LOWER EXTREMITIES: 2+ pulses, warm, well-perfused. No calf tenderness. 1+ pitting edema from ankles to knee NEUROLOGICAL: Cranial nerves II-XII intact. Normal speech. PSYCHIATRIC: Cooperative. Good eye contact. Appropriate mood and affect. SKIN: Warm, dry, normal turgor, no rashes or lesions noted, normal capillary refill. Laboratory Results - last 24 hr 08/09/19 08/09/19 08/09/19 00:40 00:40 00:40 WBC 5.0 RBC 4.59 Hgb 13.1 Hct 39.0 MCV 85.0 MCH 28.5 MCHC 33.5 RDW 13.3 Plt Count 188 MPV 8.4 Absolute Neuts (auto) 2.7 Neutrophils % 54.3 Lymphocytes % 30.1 Monocytes % 8.8 Eosinophils % 6.5 H Basophils % 0.3 Nucleated RBC % 0 PT with INR INR Sodium 140 Potassium 3.6 Chloride 104 Carbon Dioxide 28 Anion Gap 8 BUN 25.6 H Creatinine 1.5 H Est GFR (CKD-EPI)AfAm 63.34 Est GFR (CKD-EPI)NonAf 54.65 Random Glucose 111 H Calcium 8.3 L Total Bilirubin 0.3 AST 23 ALT 24 Alkaline Phosphatase 73 Creatine Kinase 207 Creatine Kinase Index No Result Required. CK-MB (CK-2) < 1.0 Troponin I 0.10 H Total Protein 7.0 Albumin 3.7 TSH 4.82 H Opiates Screen Methadone Screen Barbiturate Screen Phencyclidine Screen Ur Amphetamines Screen MDMA (Ecstasy) Screen Benzodiazepines Screen Cocaine Screen U Marijuana (THC) Screen 08/09/19 08/09/19 00:40 02:59 WBC RBC Hgb Hct MCV MCH MCHC RDW Plt Count MPV Absolute Neuts (auto) Neutrophils % Lymphocytes % Monocytes % Eosinophils % Basophils % Nucleated RBC % PT with INR 12.50 INR 1.06 Sodium Potassium Chloride Carbon Dioxide Anion Gap BUN Creatinine Est GFR (CKD-EPI)AfAm Est GFR (CKD-EPI)NonAf Random Glucose Calcium Total Bilirubin AST ALT Alkaline Phosphatase Creatine Kinase Creatine Kinase Index CK-MB (CK-2) Troponin I Total Protein Albumin TSH Opiates Screen Negative Methadone Screen Negative Barbiturate Screen Negative Phencyclidine Screen Negative Ur Amphetamines Screen Negative MDMA (Ecstasy) Screen Negative Benzodiazepines Screen Negative Cocaine Screen Negative U Marijuana (THC) Screen Negative ASSESSMENT/PLAN: Mr. Phelps is a 49 year old man with a pmhx HTN, anxiety, hypothyroidism, and DEYANIRA who presents to the ED with SOB, heart palpiations and chestpains which began around 10:30pm this evening. # Chest pain - CP since resolved. EKG shows NSR with no changes of ischemia, but troponin is elevated. Urine toxicology is negative. CXR shows cardiomegaly. Elevated TSH and elevated glucose - admit to telemetry to rule out ACS - f/u ECHO - f/u repeat troponin and EKG - fasting lipids - cardiology consult, Dr. Josue, appreciate recommendations - A1c - free T4/T3RU - patient NPO pending evaluation by cardiology incase stress test is indicated. - ASA 81 daily # ALEISHA- Unclear etiology - Obtain urinalysis - Obtain kidney sonogram to eval kidney size (small kidneys would be more indicative of CKD) - hydrate gently wit IVNS @ 75cc/h - monitor urine output - avoid nephrotoxic agents. # HTN - Hypertensive to the 150s/90s in the ED. Pitting edema in LE, may be 2/2 to amlodipine? patient states he started amlodipine in October and noted the pitting edema a few months later. - Restart suitable outpatient antihypertensive drugs when clinically appropriate. - Will advise him to take Amlodipine at night in view of leg edema. - If Echo is normal, will DC amlodipine and add HCTZ 12.5 mg po q am. #FEN NS @ 75cc/h replete PRN NPO pending decision about stress test, then resume Na restricted diet #PPX - DVT Heparin 5000u sq tid #Dispo- admit to tele for ACS r/o, full code Visit type - Emergency Visit Emergency Visit: Yes ED Registration Date: 08/09/19 Care time: The patient presented to the Emergency Department on the above date and was hospitalized for further evaluation of their emergent condition. - New Patient This patient is new to me today: Yes Date on this admission: 08/09/19 - Critical Care Critical Care patient: No ATTENDING PHYSICIAN STATEMENT I saw and evaluated the patient. I reviewed the resident's note and discussed the case with the resident. I agree with the resident's findings and plan as documented. SUBJECTIVE: OBJECTIVE: ASSESSMENT AND PLAN:
[2019-08-09 06:15] LABS: BASO % 0.3 % (0-2.0); EOS % 4.5 % (0-4.5); HEMATOCRIT 38.3 % (35.4-49); LYMPH % 27.9 % (8-40); MCH 28.7 pg (25.7-33.7); MCHC 33.9 g/dl (32.0-35.9); MEAN CELL VOLUME 84.6 fl (80-96); MEAN PLT VOLUME 8.3 fl (7.5-11.1); MONO % 7.6 % (3.8-10.2); NEUT % 59.7 % (42.8-82.8); PLATELET COUNT 188 K/MM3 (134-434); RBC 4.53 M/mm3 (4.00-5.60); RDW 13.7 % (11.9-15.9); WHITE BLOOD COUNT 4.6 K/mm3 (4.0-10.0)
[2019-08-09] MEDS ORDERED: HEPARIN NA (PORCINE) 5,000 UNITS/ML 1ML VIAL ONE ×2 (06:37→14:43)
[2019-08-09] MEDS: HEPARIN NA (PORCINE) 5,000 UNITS/ML 1ML VIAL SQ SCH ×3 (06:42→21:17)
[2019-08-09 06:51] LABS: ALBUMIN 3.6 g/dl (3.4-5.0); BILIRUBIN,TOTAL 0.4 mg/dL (0.2-1); BLOOD UREA NITROGEN 21.8 mg/dL (7-18); CALCIUM 8.2 mg/dL (8.5-10.1); CREATININE 1.2 mg/dL (0.55-1.3); MAGNESIUM 2.1 mg/dL (1.8-2.4); PHOSPHOROUS 3.7 mg/dL (2.5-4.9); TOT PROT 6.8 g/dl (6.4-8.2)
--- NOTE | 2019-08-09 07:30 | PN ---
Physical Exam: SUBJECTIVE: Patient seen and examined 49 y/o M, pmh of htn, anxiety, hypothyroidism, jairo, presents to the ED w/ SOB, palpitations and pressure like chest pain radiating to the neck w/ all symptoms lasting 30 mins starting at 10 30 pm spontaneously while the patient was sleeping, as well as an elevated BP in the 200s systolic. Pt is currently being managed for chest pain and to r/o possible ACS. Overnight, pt reports no events , no symptoms, no issues. as per patient, his symptoms have resolved and patient is currently asymptomatic. His BP however remains elevated. OBJECTIVE: Vital Signs Last Vital Signs Temp Pulse Resp BP Pulse Ox 97.8 F 80 18 157/92 98 08/09/19 15:03 08/09/19 15:03 08/09/19 15:03 08/09/19 15:03 08/09/19 17:00 GENERAL: The patient is awake, alert, and fully oriented, in no acute distress but is mildly anxious EYES: PERRL, extraocular movements intact ENT:moist mucous membranes. NECK: supple. LUNGS: Breath sounds equal, clear to auscultation bilaterally, no wheezes, no crackles Chest: No tenderness to deep palpation or reproducible pain present HEART: Regular rate and rhythm, S1, S2 without murmur, rub or gallop. ABDOMEN: Soft, nontender, nondistended, normoactive bowel sounds, no guarding, no rebound EXTREMITIES: 2+ pulses, NEUROLOGICAL: Cranial nerves II through XII grossly intact. Normal speech, SKIN: Warm, dry, normal turgor Laboratory Results - last 24 hr 08/09/19 08/09/19 08/09/19 05:45 05:45 05:45 WBC 4.6 RBC 4.53 Hgb 13.0 Hct 38.3 MCV 84.6 MCH 28.7 MCHC 33.9 RDW 13.7 Plt Count 188 MPV 8.3 Absolute Neuts (auto) 2.7 Neutrophils % 59.7 Lymphocytes % 27.9 Monocytes % 7.6 Eosinophils % 4.5 Basophils % 0.3 Nucleated RBC % 0 PT with INR INR Sodium 140 Potassium 4.0 Chloride 106 Carbon Dioxide 28 Anion Gap 6 L BUN 21.8 H Creatinine 1.2 Est GFR (CKD-EPI)AfAm 82.96 Est GFR (CKD-EPI)NonAf 71.58 Random Glucose 105 Hemoglobin A1c % 5.7 Calcium 8.2 L Phosphorus 3.7 Magnesium 2.1 Total Bilirubin 0.4 AST 22 ALT 25 Alkaline Phosphatase 60 Creatine Kinase Creatine Kinase Index CK-MB (CK-2) Troponin I 0.13 H Total Protein 6.8 Albumin 3.6 Triglycerides 54 Cholesterol 152 Total LDL Cholesterol 78 HDL Cholesterol 64 H TSH 4.30 H D Free T4 Opiates Screen Methadone Screen Barbiturate Screen Phencyclidine Screen Ur Amphetamines Screen MDMA (Ecstasy) Screen Benzodiazepines Screen Cocaine Screen U Marijuana (THC) Screen 47 Active Medications Generic Name Dose Route Start Last Admin Trade Name Freq PRN Reason Stop Dose Admin Aspirin 81 mg 08/09/19 10:00 Ecotrin - PO DAILY RENITA Heparin Sodium (Porcine) 5,000 unit 08/09/19 06:00 08/09/19 06:42 Heparin - SQ 5,000 unit TID RENITA Administration Sodium Chloride 1,000 mls @ 75 mls/hr 08/09/19 04:15 08/09/19 05:06 Normal Saline - IV 75 mls/hr ASDIR RENITA Administration ASSESSMENT/PLAN: 49 y/o M, pmh htn, anciety, hypothyroidism, jairo, presents to the ED w/ SOB, palpitations and pressure like chest pain with radiation to the neck is admitted for chest pain and ACS r/o # Chest pain - admit to telemetry to rule out ACS - f/u ECHO - f/u repeat troponin - cardiology consult, Dr. Josue, appreciate recommendations - trop indeterminate range, flat trend, EKG no ischemic changes, unlikely ACS - more likely demand in setting of HTN - echo unremarkable - nuclear stress test for further evaluation - patient NPO . - ASA 81 daily -Monitor TSH -continue home levoxyl # ALEISHA- Unclear etiology -Cre normalized improving 1.5-->1.2 now. - US- f/u -f/u UA - hydrate gently wit IVNS - monitor urine output - avoid nephrotoxic agents. # HTN - -If Echo is normal, will DC amlodipine and add HCTZ 12.5 mg po q am. -Monitor BP- 157/92 #FEN NS @ 75cc/h replete PRN NPO pending decision about stress test, then resume Na restricted diet #PPX - DVT Heparin 5000u sq tid Dispo: consider nuclear stress test as per cardio recommendation, npo, fluids Visit type - Emergency Visit Emergency Visit: Yes ED Registration Date: 08/10/19 Care time: The patient presented to the Emergency Department on the above date and was hospitalized for further evaluation of their emergent condition. - New Patient This patient is new to me today: Yes Date on this admission: 08/11/19 - Critical Care Critical Care patient: No - Discharge Referral Referred to [facility] Med P.C.: No ATTENDING PHYSICIAN STATEMENT I saw and evaluated the patient. I reviewed the resident's note and discussed the case with the resident. I agree with the resident's findings and plan as documented. SUBJECTIVE: OBJECTIVE: ASSESSMENT AND PLAN:
[2019-08-09] MEDS ORDERED: LEVOTHYROXINE NA 125 MCG TABLET (FP) PO SCH ×2 (08:30→10:00)
[2019-08-09] MEDS: LEVOTHYROXINE 100 MCG, LEVOTHYROXINE 75 MCG PO SCH (09:00)
[2019-08-09] MEDS ORDERED: ASPIRIN COATED 81 MG TABLET.EC ONE (09:29)
[2019-08-09] MEDS ORDERED: CARVEDILOL 3.125 MG TABLET (FP) ONE (09:33)
[2019-08-09] MEDS: amLODIPine BESYLATE 5 MG TABLET (FP) PO SCH (09:38)
[2019-08-09] MEDS: ASPIRIN COATED 81 MG TABLET.EC PO SCH (09:38)
--- NOTE | 2019-08-09 09:41 | PN ---
Teaching Attending Note Name of Resident: Kaz Castillo ATTENDING PHYSICIAN STATEMENT I saw and evaluated the patient. I reviewed the resident's note and discussed the case with the resident. I agree with the resident's findings and plan as documented. SUBJECTIVE: Patient denies having any chest pain at this time. OBJECTIVE: Vital Signs Temperature 98.3 F 08/09/19 09:35 Pulse Rate 71 08/09/19 09:35 Respiratory Rate 18 08/09/19 09:35 Blood Pressure 153/89 08/09/19 09:35 O2 Sat by Pulse Oximetry (%) 99 08/09/19 09:35 GENERAL: The patient is awake, alert, and fully oriented, in no acute distress. HEAD: Normal with no signs of trauma. EYES: PERRL, extraocular movements intact, sclera anicteric, conjunctiva clear. ENT: Ears normal, oropharynx clear without exudates, moist mucous membranes. NECK: Trachea midline, full range of motion, supple. LUNGS: Breath sounds equal, clear to auscultation bilaterally, no wheezes, no crackles, no accessory muscle use. HEART: Regular rate and rhythm, S1, S2 without murmur, rub or gallop. ABDOMEN: Soft, nontender, nondistended, normoactive bowel sounds, no guarding, no rebound, no hepatosplenomegaly, no masses. EXTREMITIES: 2+ pulses, warm, well-perfused, no edema. NEUROLOGICAL: Cranial nerves II through XII grossly intact. Normal speech, gait not observed. PSYCH: Normal mood, normal affect. SKIN: Warm, dry, normal turgor, no rashes or lesions noted CBCD WBC 4.6 K/mm3 (4.0-10.0) 08/09/19 05:45 RBC 4.53 M/mm3 (4.00-5.60) 08/09/19 05:45 Hgb 13.0 GM/dL (11.7-16.9) 08/09/19 05:45 Hct 38.3 % (35.4-49) 08/09/19 05:45 MCV 84.6 fl (80-96) 08/09/19 05:45 MCHC 33.9 g/dl (32.0-35.9) 08/09/19 05:45 RDW 13.7 % (11.9-15.9) 08/09/19 05:45 Plt Count 188 K/MM3 (134-434) 08/09/19 05:45 MPV 8.3 fl (7.5-11.1) 08/09/19 05:45 CMP Sodium 140 mmol/L (136-145) 08/09/19 05:45 Potassium 4.0 mmol/L (3.5-5.1) 08/09/19 05:45 Chloride 106 mmol/L (98-107) 08/09/19 05:45 Carbon Dioxide 28 mmol/L (21-32) 08/09/19 05:45 Anion Gap 6 MMOL/L (8-16) L 08/09/19 05:45 BUN 21.8 mg/dL (7-18) H 08/09/19 05:45 Creatinine 1.2 mg/dL (0.55-1.3) 08/09/19 05:45 Random Glucose 105 mg/dL (74-106) 08/09/19 05:45 Calcium 8.2 mg/dL (8.5-10.1) L 08/09/19 05:45 Total Bilirubin 0.4 mg/dL (0.2-1) 08/09/19 05:45 AST 22 U/L (15-37) 08/09/19 05:45 ALT 25 U/L (13-61) 08/09/19 05:45 Alkaline Phosphatase 60 U/L (45-117) 08/09/19 05:45 Total Protein 6.8 g/dl (6.4-8.2) 08/09/19 05:45 Albumin 3.6 g/dl (3.4-5.0) 08/09/19 05:45 CARDIAC ENZYMES Creatine Kinase 207 U/L (26-308) 08/09/19 00:40 Troponin I 0.13 ng/ml (0.00-0.05) H 08/09/19 05:45 Current Medications Generic Name Dose Route Start Last Admin Trade Name Asaq PRN Reason Stop Dose Admin Amlodipine Besylate 5 mg 08/09/19 10:00 08/09/19 09:38 Norvasc - PO 5 mg DAILY RENITA Administration Aspirin 81 mg 08/09/19 10:00 08/09/19 09:38 Ecotrin - PO 81 mg DAILY RENITA Administration Carvedilol 6.25 mg 08/09/19 10:00 08/09/19 09:38 Coreg - PO 6.25 mg DAILY RENITA Administration Heparin Sodium (Porcine) 5,000 unit 08/09/19 06:00 08/09/19 06:42 Heparin - SQ 5,000 unit TID RENITA Administration Sodium Chloride 1,000 mls @ 75 mls/hr 08/09/19 04:15 08/09/19 05:06 Normal Saline - IV 75 mls/hr ASDIR RENITA Administration Levothyroxine Sodium 100 mcg/ 175 mcg 08/09/19 09:00 08/09/19 09:00 Levothyroxine Sodium 75 mcg PO 175 mcg DAILY@0700 RENITA Administration Lisinopril 40 mg 08/09/19 22:00 Prinivil PO HS [facility] Home Medications Medication Instructions Recorded Levothyroxine [Synthroid -] 175 mcg PO DAILY 01/06/13 Lisinopril [Prinivil -] 40 mg PO HS 01/06/13 Amlodipine Besylate 5 mg PO DAILY 08/09/19 Carvedilol [Coreg] 6.25 mg PO DAILY 08/09/19 Laboratory Tests 08/20/13 09/15/18 08/09/19 20:40 21:00 00:40 Creatinine 0.9 1.1 1.5 H 08/09/19 05:45 Creatinine 1.2 Laboratory Tests 08/20/13 09/15/18 08/09/19 20:40 21:00 00:40 BUN Creatinine 0.9 1.1 1.5 H Hemoglobin A1c % Troponin I Triglycerides Cholesterol Total LDL Cholesterol HDL Cholesterol TSH 4.82 H Free T4 Free T3 08/09/19 08/09/19 08/09/19 05:45 05:45 05:45 BUN 21.8 H Creatinine 1.2 Hemoglobin A1c % 5.7 Troponin I 0.13 H Triglycerides 54 Cholesterol 152 Total LDL Cholesterol 78 HDL Cholesterol 64 H TSH 4.30 H D Free T4 Free T3 Pending 08/09/19 05:45 BUN Creatinine Hemoglobin A1c % Troponin I Triglycerides Cholesterol Total LDL Cholesterol HDL Cholesterol TSH Free T4 1.01 Free T3 Urine tox;neg CXR: CM ASSESSMENT AND PLAN: Patient is a 49yo male with a pmhx HTN, anxiety, hypothyroidism, and DEYANIRA who presented to the ED c/o having SOB, heart palpitations and chest pain radiating to his neck. #Acute chest pain r/o ACs on [facility], lipid panel as above. echo normal in 2012, will repeat the echo., cardio dr Josue #Palpitations r/o Afib /check ,TSh level since patient has hx of hypothyroidism #Hypertension Uncontrolled : on Lisinipril/norvasc/coreg #Hypothyroidism continue home levoxyl, TSH,Ft4,Ft3 levels pending #ARF s/p IVF , improving 1.5-->1.2 now. DVT Px: heparin sq
[2019-08-09] MEDS ORDERED: CARVEDILOL 6.25 MG TABLET (FP) PO SCH (10:00)
[2019-08-09 12:52] LABS: PH,URINE 6.5 (5.0-8.0); URINE APPEARANCE CLEAR; URINE BILIRUBIN NEGATIVE (NEGATIVE); URINE COLOR YELLOW; URINE GLUCOSE (UA) NEGATIVE (NEGATIVE); URINE KETONE NEGATIVE (NEGATIVE); URINE LEUK ESTERASE NEGATIVE (NEGATIVE); URINE NITRITE NEGATIVE (NEGATIVE); URINE PROTEIN NEGATIVE (NEGATIVE); URINE UROBILINOGEN 0.2 mg/dL (0.2-1.0)
--- NOTE | 2019-08-09 13:34 | EKG ---
Test Reason : Blood Pressure : / mmHG Vent. Rate : 082 BPM Atrial Rate : 082 BPM P-R Int : 180 ms QRS Dur : 106 ms QT Int : 366 ms P-R-T Axes : 057 021 024 degrees QTc Int : 427 ms NORMAL SINUS RHYTHM NORMAL ECG WHEN COMPARED WITH ECG OF 15-SEP-2018 19:57, NO SIGNIFICANT CHANGE WAS FOUND Confirmed by JOSHUA LO MD ([id number]) on 08/09/2019 1:34:14 PM Referred By: Confirmed By:JOSHUA LO MD
--- NOTE | 2019-08-09 13:34 | EKG ---
Test Reason : Blood Pressure : / mmHG Vent. Rate : 074 BPM Atrial Rate : 074 BPM P-R Int : 172 ms QRS Dur : 104 ms QT Int : 360 ms P-R-T Axes : 063 018 011 degrees QTc Int : 399 ms NORMAL SINUS RHYTHM NORMAL ECG WHEN COMPARED WITH ECG OF 09-AUG-2019 00:06, NO SIGNIFICANT CHANGE WAS FOUND Confirmed by JOSHUA LO MD ([id number]) on 08/09/2019 1:33:48 PM Referred By: Confirmed By:JOSHUA LO MD
--- NOTE | 2019-08-09 14:43 | ECHO ---
Name: BUD PALMA Exam:Adult Echocardiogram Study Date: 08/09/2019 11:32 AM Age: 49 yrs Reason For Study: ef Height: 68 in Weight: 220 lb BSA: 2.1 m2 MMode/2D Measurements & Calculations IVSd: 1.3 cm Ao root diam: 2.7 cm LVIDd: 4.8 cm LA dimension: 3.5 cm LVIDs: 2.9 cm LVPWd: 1.1 cm EDV(Teich): 108.7 ml LVOT diam: 2.0 cm ESV(Teich): 32.9 ml LAV (MOD-bp): 57.9 ml Doppler Measurements & Calculations MV E max liu: 111.0 cm/sec Ao V2 max: 150.7 cm/sec MV A max liu: 86.8 cm/sec Ao max P.1 mmHg MV E/A: 1.3 MV dec time: 0.23 sec COREY(V,D): 2.3 cm2 LV V1 max P.8 mmHg MR max liu: 360.9 cm/sec LV V1 max: 110.1 cm/sec MR max P.1 mmHg PA V2 max: 134.4 cm/sec Med Peak E' Liu: 10.6 cm/sec PA max P.2 mmHg Med E/e': 10.5 Lat Peak E' Liu: 11.7 cm/sec Lat E/e': 9.4 PI Vmax: 120.8 cm/sec Procedure A complete two-dimensional transthoracic echocardiogram was performed (2D, M-mode, Doppler and color flow Doppler). Left Ventricle There is mild concentric left ventricular hypertrophy. The left ventricular ejection fraction is norm al. Ejection Fraction = 60-65%. The left ventricular wall motion is normal. Right Ventricle The right ventricle is normal in size and function. Atria Normal left and right atrial size and function. Mitral Valve There is no mitral regurgitation noted. Tricuspid Valve There is trace tricuspid regurgitation. There was insufficient TR detected to calculate RV systolic p ressure. Aortic Valve No hemodynamically significant valvular aortic stenosis. No aortic regurgitation is present. Pulmonic Valve There is no pulmonic valvular regurgitation. Great Vessels The aortic root is normal size. Pericardium/Pleura There is no pericardial effusion. Interpretation Summary There is mild concentric left ventricular hypertrophy. The left ventricular ejection fraction is normal. The right ventricle is normal in size and function. There is trace tricuspid regurgitation. MD Baldomero Yu 08/09/2019 02:43 PM
--- NOTE | 2019-08-09 16:10 | CON.CARD ---
Consult Consult Specialty:: Cardiology Referred by:: Medicine Reason for Consultation:: chest pain, dyspnea - History of Present Illness Chief Complaint: chest pain History of Present Illness: 49M h/o HTN, anxiety, hypothyroidism, DEYANIRA p/w palps, chest pain, dyspnea night of admission. Fell asleep and woke up suddenly with short of breath, palps and chest pain, has had panic attacks before but this felt worse. Not sure how long symptoms lasted, currently no chest pain, palps, dizziness, dyspnea. BP elevated during episode per patient >200/100, initial BP charted here 204/68 reportedly erroneous, has improved. Sees Dr Whitley as PCP, recently started on carvedilol for improved BP control, per patient BP at home generally 130s/80s since starting carvedilol on Tuesday. Stable lower ext edema. Exercises regularly with cardio, no exertional symptoms - Alcohol/Substance Use Hx Alcohol Use: Yes (social) - Smoking History Smoking history: Never smoked Have you smoked in the past 12 months: No Aproximately how many cigarettes per day: 0 Home Medications - Allergies Allergies/Adverse Reactions: Allergies Allergy/AdvReac Type Severity Reaction Status Date / Time Shellfish Allergy Intermediate pruritis Verified 08/08/19 23:22 - Home Medications Home Medications: Ambulatory Orders Levothyroxine [Synthroid -] 175 mcg PO DAILY 01/06/13 Lisinopril [Prinivil -] 40 mg PO HS 01/06/13 Amlodipine Besylate 5 mg PO DAILY 08/09/19 Carvedilol [Coreg] 6.25 mg PO BID 08/09/19 Family Medical History Family History: Unremarkable Review of Systems - Review of Systems Constitutional: reports: No Symptoms Eyes: reports: No Symptoms HENT: reports: No Symptoms Neck: reports: No Symptoms Cardiovascular: reports: No Symptoms Respiratory: reports: No Symptoms Gastrointestinal: reports: No Symptoms Genitourinary: reports: No Symptoms Musculoskeletal: reports: No Symptoms Integumentary: reports: No Symptoms Neurological: reports: No Symptoms Endocrine: reports: No Symptoms Hematology/Lymphatic: reports: No Symptoms Psychiatric: reports: No Symptoms Vital Signs: Vital Signs Temperature 97.8 F 08/09/19 15:03 Pulse Rate 80 08/09/19 15:03 Respiratory Rate 18 08/09/19 15:03 Blood Pressure 157/92 08/09/19 15:03 O2 Sat by Pulse Oximetry (%) 100 08/09/19 15:03 Constitutional: Yes: No Distress, Calm Eyes: Yes: Conjunctiva Clear, EOM Intact HENT: Yes: Atraumatic, Normocephalic Neck: Yes: Supple, Trachea Midline Respiratory: Yes: Regular, CTA Bilaterally Gastrointestinal: Yes: Normal Bowel Sounds, Soft Cardiovascular: Yes: Regular Rate and Rhythm JVD: No Extremities: No: Cold Edema: No Integumentary: No: Jaundice Neurological: Yes: Alert, Oriented Psychiatric: No: Agitated - Other Data Labs, Other Data: CBC, BMP 08/09/19 05:45 08/09/19 05:45 INR, PTT INR 1.06 (0.83-1.09) 08/09/19 00:40 Troponin, BNP 08/09/19 08/09/19 08/09/19 00:40 04:00 05:45 Troponin I 0.10 H 0.12 H 0.13 H 08/09/19 11:12 Troponin I 0.11 H Troponin, BNP 08/09/19 08/09/19 08/09/19 00:40 04:00 05:45 Troponin I 0.10 H 0.12 H 0.13 H 08/09/19 11:12 Troponin I 0.11 H Assessment/Plan EKG: sinus, nl intervals, no ischemic changes echo 07/2019: mild conc LVH, nl LV/RV, tr TR tele: sinus elevated trop, chest pain - trop indeterminate range, flat trend, EKG no ischemic changes, unlikely ACS - more likely demand in setting of HTN - echo unremarkable - nuclear stress test for further evaluation ALEISHA - manage per primary, improved with hydration HTN - per patient improving at home on regimen of amlodipine 5 mg daily, carvedilol 6.25 mg BID (started this week), lisinopril 40 mg daily - per outpatient notes had been on chlorthalidone in the past which was stopped for hypokalemia - cont current meds for now - monitor BP
[2019-08-09] MEDS: CARVEDILOL 6.25 MG TABLET (FP) PO SCH (21:40)
[2019-08-09] MEDS ORDERED: LISINOPRIL 20 MG TABLET (FP) PO SCH (22:00)
[2019-08-10] MEDS ORDERED: LEVOTHYROXINE NA 75 MCG TABLET (FP) ONE (05:39)
[2019-08-10] MEDS ORDERED: LEVOTHYROXINE NA 100 MCG TABLET (FP) ONE (05:39)
[2019-08-10] MEDS: LEVOTHYROXINE 100 MCG, LEVOTHYROXINE 75 MCG PO SCH (06:13)
[2019-08-10] MEDS: HEPARIN NA (PORCINE) 5,000 UNITS/ML 1ML VIAL SQ SCH ×2 (06:14→15:24)
[2019-08-10 06:45] LABS: BASO % 0.3 % (0-2.0); EOS % 5.5 % (0-4.5); HEMATOCRIT 38.5 % (35.4-49); HEMOGLOBIN 13.1 GM/dL (11.7-16.9); LYMPH % 42.4 % (8-40); MCH 28.8 pg (25.7-33.7); MCHC 34.1 g/dl (32.0-35.9); MEAN CELL VOLUME 84.5 fl (80-96); MEAN PLT VOLUME 8.4 fl (7.5-11.1); MONO % 9.7 % (3.8-10.2); NEUT % 42.1 % (42.8-82.8); PLATELET COUNT 179 K/MM3 (134-434); RBC 4.56 M/mm3 (4.00-5.60); RDW 13.6 % (11.9-15.9); WHITE BLOOD COUNT 4.4 K/mm3 (4.0-10.0)
[2019-08-10 07:27] LABS: ALBUMIN 3.5 g/dl (3.4-5.0); BILIRUBIN,TOTAL 0.6 mg/dL (0.2-1); BLOOD UREA NITROGEN 16.3 mg/dL (7-18); CALCIUM 8.7 mg/dL (8.5-10.1); CREATININE 1.1 mg/dL (0.55-1.3); POTASSIUM 4.1 mmol/L (3.5-5.1); TOT PROT 6.7 g/dl (6.4-8.2)
[2019-08-10 08:47] VITALS: TEMP 98
[2019-08-10] MEDS: amLODIPine BESYLATE 5 MG TABLET (FP) PO SCH ×2 (08:50→12:16)
--- NOTE | 2019-08-10 09:33 | PN ---
Progress Note, Physician Chief Complaint: BP improved He feels better No CP or SOB TELE: SR - Current Medication List Current Medications: Active Medications Amlodipine Besylate (Norvasc -) 5 mg PO DAILY [facility] Last Admin: 08/10/19 08:50 Dose: 5 mg Aspirin (Ecotrin -) 81 mg PO DAILY [facility] Last Admin: 08/09/19 09:38 Dose: 81 mg Carvedilol (Coreg -) 6.25 mg PO BID [facility] Last Admin: 08/09/19 21:40 Dose: 6.25 mg Heparin Sodium (Porcine) (Heparin -) 5,000 unit SQ TID [facility] Last Admin: 08/10/19 06:14 Dose: 5,000 unit Levothyroxine Sodium 100 mcg/ (Levothyroxine Sodium 75 mcg) 175 mcg PO DAILY@ 0700 [facility] Last Admin: 08/10/19 06:13 Dose: 175 mcg Lisinopril (Prinivil) 40 mg PO HS [facility] Last Admin: 08/09/19 21:41 Dose: 40 mg - Objective Vital Signs: Vital Signs Temperature 98 F 08/10/19 08:45 Pulse Rate 64 08/10/19 08:45 Respiratory Rate 18 08/10/19 08:45 Blood Pressure 151/96 08/10/19 08:45 O2 Sat by Pulse Oximetry (%) 98 08/09/19 21:00 Constitutional: Yes: No Distress, Calm Cardiovascular: Yes: Regular Rate and Rhythm Respiratory: Yes: CTA Bilaterally Gastrointestinal: Yes: Soft Edema: No Neurological: Yes: Alert, Oriented Labs: CBC, BMP 08/10/19 05:50 08/10/19 05:50 INR, PTT INR 1.06 (0.83-1.09) 08/09/19 00:40 Laboratory Tests 08/09/19 08/09/19 08/09/19 00:40 04:00 05:45 WBC Hgb Plt Count Sodium Potassium Creatinine Creatine Kinase 207 Troponin I 0.10 H 0.12 H 0.13 H 08/09/19 08/10/19 08/10/19 11:12 05:50 05:50 WBC 4.4 Hgb 13.1 Plt Count 179 Sodium 138 Potassium 4.1 Creatinine 1.1 Creatine Kinase Troponin I 0.11 H - ....Imaging EKG: Image Reviewed Assessment/Plan Assessment/Plan EKG: sinus, nl intervals, no ischemic changes echo 07/2019: mild conc LVH, nl LV/RV, tr TR tele: sinus elevated trop, chest pain: Now resolved as BP impoved. - trop indeterminate range, flat trend, EKG no ischemic changes, unlikely ACS - more likely demand in setting of HTN - echo unremarkable - nuclear stress test for further evaluation today ALEISHA - manage per primary, improved with hydration HTN - cont home regimen of amlodipine 5 mg daily, carvedilol 6.25 mg BID (started this week), lisinopril 40 mg daily - per outpatient notes had been on chlorthalidone in the past which was stopped for hypokalemia - cont current meds for now - monitor BP
[2019-08-10] MEDS ORDERED: REGADENOSON 0.4 MG/5 ML PRE-FILLED SYRINGE IVPUSH ONE ×2 (10:49→11:30)
[2019-08-10] MEDS: CARVEDILOL 6.25 MG TABLET (FP) PO SCH (12:18)
[2019-08-10] MEDS: ASPIRIN COATED 81 MG TABLET.EC PO SCH (12:19)
[2019-08-10 14:44] VITALS: BP 170/91; PULSE 109
--- NOTE | 2019-08-10 14:47 | DS ---
Physical Exam: SUBJECTIVE: Patient seen and examined. Currently patient no longer has chest pain. Patient is afebrile, asymptomatic without any c/o or issues. No overnight events. OBJECTIVE: Vital Signs Period Temp Pulse Resp BP Sys/Arreola Pulse Ox Last 24 Hr 97.8 F-98.3 F 54-80 12-20 129-157/68-97 98-100 PHYSICAL EXAM GENERAL: The patient is awake, alert, and fully oriented, in no acute distress but is mildly anxious EYES: PERRL, extraocular movements intact ENT:moist mucous membranes. NECK: supple. LUNGS: Breath sounds equal, clear to auscultation bilaterally, no wheezes, no crackles Chest: No tenderness to deep palpation or reproducible pain present HEART: Regular rate and rhythm, S1, S2 without murmur, rub or gallop. ABDOMEN: Soft, nontender, nondistended, normoactive bowel sounds, no guarding, no rebound EXTREMITIES: 2+ pulses, NEUROLOGICAL: Cranial nerves II through XII grossly intact. Normal speech, SKIN: Warm, dry, normal turgor LABS Laboratory Results - last 24 hr 08/09/19 08/09/19 08/10/19 05:45 21:32 05:50 WBC 4.4 RBC 4.56 Hgb 13.1 Hct 38.5 MCV 84.5 MCH 28.8 MCHC 34.1 RDW 13.6 Plt Count 179 MPV 8.4 Absolute Neuts (auto) 1.8 Neutrophils % 42.1 L D Lymphocytes % 42.4 H D Monocytes % 9.7 Eosinophils % 5.5 H Basophils % 0.3 Nucleated RBC % 0 Sodium Potassium Chloride Carbon Dioxide Anion Gap BUN Creatinine Est GFR (CKD-EPI)AfAm Est GFR (CKD-EPI)NonAf POC Glucometer 88 Random Glucose Calcium Total Bilirubin AST ALT Alkaline Phosphatase Total Protein Albumin Free T3 2.5 HOSPITAL COURSE: Date of Admission:08/10/19 49 y/o M, pmh htn, anciety, hypothyroidism, jairo, presents to the ED w/ SOB, palpitations and pressure like chest pain with radiation to the neck is admitted for chest pain and Elevated BP. Pt's BP was managed with Carvedilol and amlodipine. Patient also had mild ALEISHA which was resolved with hydration. Patients chest pain was worked up for ACS w/ EKG, which was normal but Troponin remained elevated but was a flat trend. Cardiology was consulted, who then conducted a nuclear stress test that showed mild-moderate ischemia. Which prompted cardiology to transfer the patient to [place] for Cardiac Cath. EKG- normal sinus rhythm CXR Nuclear stress test- mild to moderate ischemia Date of Discharge: 08/10/19 Home Medications Medication Instructions Recorded Levothyroxine [Synthroid -] 175 mcg PO DAILY 01/06/13 Lisinopril [Prinivil -] 40 mg PO HS 01/06/13 Amlodipine Besylate 5 mg PO DAILY 08/09/19 Carvedilol [Coreg] 6.25 mg PO BID 08/09/19 Minutes to complete discharge: 35 Discharge Summary Problems reviewed: Yes Reason For Visit: CHEST PAIN Condition: Fair - Instructions Diet, Activity, Other Instructions: You we admitted to the hospital for a very high blood pressure and chest pain. While you were here, we treated your blood pressure with medications to bring it down to normal. We also treated your chest pain with medications, and the pain resolved. We did tests, including blood work and imaging (nuclear stress test) of your heart which found some signs of a heart condition which required you to have a specialized procedure done. Therefore, you are being transferred to a facility that is capable of this procedure, [place]. Disposition: TRANSFER ACUTE CARE/OTHER HOSP - Home Medications Comprehensive Discharge Medication List: Ambulatory Orders Levothyroxine [Synthroid -] 175 mcg PO DAILY 01/06/13 Lisinopril [Prinivil -] 40 mg PO HS 01/06/13 Amlodipine Besylate 5 mg PO DAILY 08/09/19 Carvedilol [Coreg] 6.25 mg PO BID 08/09/19 This patient is new to me today: Yes Date on this admission: 08/11/19 Emergency Visit: Yes ED Registration Date: 08/10/19 Care time: The patient presented to the Emergency Department on the above date and was hospitalized for further evaluation of their emergent condition. Critical Care patient: No - Discharge Referral Referred to [facility] Med P.C.: No ATTENDING PHYSICIAN STATEMENT I saw and evaluated the patient. I reviewed the resident's note and discussed the case with the resident. I agree with the resident's findings and plan as documented. SUBJECTIVE: OBJECTIVE: ASSESSMENT AND PLAN:
[2019-08-10] MEDS ORDERED: LISINOPRIL 20 MG TABLET (FP) PO ONE (15:03)
--- NOTE | 2019-08-10 17:18 | PN ---
Teaching Attending Note Name of Resident: Kaz Castillo ATTENDING PHYSICIAN STATEMENT I saw and evaluated the patient. I reviewed the resident's note and discussed the case with the resident. I agree with the resident's findings and plan as documented. SUBJECTIVE: Patient has no new complains. going for stress test and echo. OBJECTIVE: Vital Signs Temperature 98 F 08/10/19 14:00 Pulse Rate 109 H 08/10/19 14:00 Respiratory Rate 20 08/10/19 14:00 Blood Pressure 170/91 08/10/19 14:00 O2 Sat by Pulse Oximetry (%) 100 08/10/19 09:00 GENERAL: The patient is awake, alert, and fully oriented, in no acute distress. HEAD: Normal with no signs of trauma. EYES: PERRL, extraocular movements intact, sclera anicteric, conjunctiva clear. ENT: Ears normal, oropharynx clear without exudates, moist mucous membranes. NECK: Trachea midline, full range of motion, supple. LUNGS: Breath sounds equal, clear to auscultation bilaterally, no wheezes, no crackles, no accessory muscle use. HEART: Regular rate and rhythm, S1, S2 without murmur, rub or gallop. ABDOMEN: Soft, nontender, nondistended, normoactive bowel sounds, no guarding, no rebound, no hepatosplenomegaly, no masses. EXTREMITIES: 2+ pulses, warm, well-perfused, no edema. NEUROLOGICAL: Cranial nerves II through XII grossly intact. Normal speech, gait not observed. PSYCH: Normal mood, normal affect. SKIN: Warm, dry, normal turgor, no rashes or lesions noted CBCD WBC 4.4 K/mm3 (4.0-10.0) 08/10/19 05:50 RBC 4.56 M/mm3 (4.00-5.60) 08/10/19 05:50 Hgb 13.1 GM/dL (11.7-16.9) 08/10/19 05:50 Hct 38.5 % (35.4-49) 08/10/19 05:50 MCV 84.5 fl (80-96) 08/10/19 05:50 MCHC 34.1 g/dl (32.0-35.9) 08/10/19 05:50 RDW 13.6 % (11.9-15.9) 08/10/19 05:50 Plt Count 179 K/MM3 (134-434) 08/10/19 05:50 MPV 8.4 fl (7.5-11.1) 08/10/19 05:50 CMP Sodium 138 mmol/L (136-145) 08/10/19 05:50 Potassium 4.1 mmol/L (3.5-5.1) 08/10/19 05:50 Chloride 102 mmol/L (98-107) 08/10/19 05:50 Carbon Dioxide 29 mmol/L (21-32) 08/10/19 05:50 Anion Gap 7 MMOL/L (8-16) L 08/10/19 05:50 BUN 16.3 mg/dL (7-18) 08/10/19 05:50 Creatinine 1.1 mg/dL (0.55-1.3) 08/10/19 05:50 Random Glucose 103 mg/dL (74-106) 08/10/19 05:50 Calcium 8.7 mg/dL (8.5-10.1) 08/10/19 05:50 Total Bilirubin 0.6 mg/dL (0.2-1) 08/10/19 05:50 AST 21 U/L (15-37) 08/10/19 05:50 ALT 24 U/L (13-61) 08/10/19 05:50 Alkaline Phosphatase 49 U/L (45-117) 08/10/19 05:50 Total Protein 6.7 g/dl (6.4-8.2) 08/10/19 05:50 Albumin 3.5 g/dl (3.4-5.0) 08/10/19 05:50 CARDIAC ENZYMES Creatine Kinase 207 U/L (26-308) 08/09/19 00:40 Troponin I 0.11 ng/ml (0.00-0.05) H 08/09/19 11:12 Home Medications Medication Instructions Recorded Levothyroxine [Synthroid -] 175 mcg PO DAILY 01/06/13 Lisinopril [Prinivil -] 40 mg PO HS 01/06/13 Amlodipine Besylate 5 mg PO DAILY 08/09/19 Carvedilol [Coreg] 6.25 mg PO BID 08/09/19 nuclear stress test: mild to moderate apical ischemia. LVEF 56% ASSESSMENT AND PLAN: Patient is a 49yo male with a pmhx HTN, anxiety, hypothyroidism, and DEYANIRA who presented to the ED c/o having SOB, heart palpitations and chest pain radiating to his neck. #Acute chest pain r/o ACs on [facility], lipid panel as above. echo normal in 2012, echo.07/2019 mild concentric LVEF is normal, trace TR, cardio dr Josue #Palpitations r/o Afib : no further palpitations as per patient. #Hypertension Uncontrolled : on Lisinipril/norvasc/coreg #Hypothyroidism continue home levoxyl #ARF s/p IVF , improving 1.5-->1.2-->0.11 patient will be transferred to [facility] for cath. DVT Px: heparin sq Laboratory Tests 08/20/13 09/15/18 08/09/19 20:40 21:00 00:40 BUN Creatinine 0.9 1.1 1.5 H Hemoglobin A1c % Troponin I Triglycerides Cholesterol Total LDL Cholesterol HDL Cholesterol TSH 4.82 H Free T4 Free T3 08/09/19 08/09/19 08/09/19 05:45 05:45 05:45 BUN 21.8 H Creatinine 1.2 Hemoglobin A1c % 5.7 Troponin I 0.13 H Triglycerides 54 Cholesterol 152 Total LDL Cholesterol 78 HDL Cholesterol 64 H TSH 4.30 H D Free T4 Free T3 2.5 08/09/19 08/09/19 05:45 11:12 BUN Creatinine Hemoglobin A1c % Troponin I 0.11 H Triglycerides Cholesterol Total LDL Cholesterol HDL Cholesterol TSH Free T4 1.01 Free T3
== END 2019-08-10 15:27 | disposition short-term general hospital (02) ==
LOC: JER 22:55 → UNDOADMOB 08-09 02:58 → JERBED 08-09 02:58 → INTOOBSV 08-09 02:58 → JERBED 08-09 16:11 → J4W 08-09 16:11 → JERBED 08-10 09:35
PROVIDERS: ADMIT Internal Medicine; ATTEND Internal Medicine
PROC: 3E033GC Introduction of Other Therapeutic Substance into Peripheral Vein, Percutaneous Approach (ICD-10-PCS; principal; 2019-08-10)
PROC: 3E0337Z Introduction of Electrolytic and Water Balance Substance into Peripheral Vein, Percutaneous Approach (ICD-10-PCS; 2019-08-10)
DX: R07.89 Other chest pain (principal); I25.9 Chronic ischemic heart disease, unspecified; N17.9 Acute kidney failure, unspecified; I10 Essential (primary) hypertension; E03.9 Hypothyroidism, unspecified; F41.9 Anxiety disorder, unspecified; G47.33 Obstructive sleep apnea (adult) (pediatric); R77.8 Other specified abnormalities of plasma proteins; E66.9 Obesity, unspecified; Z68.33 Body mass index [BMI] 33.0-33.9, adult; Z79.82 Long term (current) use of aspirin; Z91.013 Allergy to seafood; Z29.8 Encounter for other specified prophylactic measures
CPT/HCPCS: 36415; 71045-TC-FY; 76775-TC; 78452-TC; 80053; 80061; 80307; 81003; 82550; 82553; 82962; 83036; 83721; 83735; 84100; 84439; 84443; 84481; 84484; 85025; 85610; 93005; 93010; 93017; 93306-TC; 96361; 96374; 99285-25; A9502; G0378; J1644; J2785; J7030